=== PATIENT | female | born 1990 | race Hispanic/Latino ===

== ENCOUNTER → 2024-07-27 | Outpatient (REF) | payer BC | LOC: RAD 14:56 | PROVIDERS: ATTEND Internal Medicine | DX: M54.40 Lumbago with sciatica, unspecified side (principal); M53.86 Other specified dorsopathies, lumbar region | CPT/HCPCS: 72110; 72202 ==

== ENCOUNTER → 2024-08-26 | Outpatient (REF) | payer BC | LOC: MRI 11:31 | PROVIDERS: ATTEND Internal Medicine | DX: M54.50 Low back pain, unspecified (principal) | CPT/HCPCS: 72195 ==